=== PATIENT | male | born 1985 | race African-American/Black ===

== ENCOUNTER 2018-05-22 06:18 | Emergency (ER) | payer OTHER ==
[~2018-05-22] VITALS: Ht 182.9 cm; Wt 77.1 kg
[2018-05-22] MEDS ORDERED: NAPROSYN500 MG PO (08:10)
[2018-05-22] MEDS ORDERED: CIPRO HC OTIC S10 ML OTIC (08:10)
[2018-05-22] MEDS ORDERED: NORCO 5-325 TA1 EACH PO (08:10)
[2018-05-22] MEDS ORDERED: AUGMENTIN 875-1 EACH PO (08:10)
[2018-05-22 08:39] VITALS: BP 126/69
== END 2018-05-22 17:39 | disposition home or self-care (01) ==
LOC: ER 06:18
DX: H66.92 Otitis media, unspecified, left ear (principal); H60.62 Unspecified chronic otitis externa, left ear